=== PATIENT | female | born 1950 | race Caucasian/White ===

== ENCOUNTER 2019-10-23 08:05 | Observation (INO) ==
[2019-10-23 08:29] LABS: Basophils % 0.1 %; Eosinophils % 0.2 %; Hematocrit 40.1 % (35.3-44.9); Hemoglobin 13.3 g/dL (11.5-15.4); Immature Granulocytes % 0.3 % (0-4); Lymphocytes # 1.5 K/mcL (0.6-4.6); Lymphocytes % 15.9 %; Mean Corpuscular HGB Conc 33.2 g/dL (31.6-35.5); Mean Corpuscular Hemoglobin 28.6 pg (28.0-33.3); Mean Corpuscular Volume 86.2 fL (83.0-100.0); Mean Platelet Volume 10.4 fL (9.4-12.4); Monocytes # 1.1 K/mcL (0.0-1.3); Monocytes % 11.4 %; Platelet Count 172 K/mcL (140-400); Red Blood Count 4.65 M/mcL (3.82-4.97); Red Cell Distribution Width 13.1 % (11.5-14.5); Segmented Neutrophils % 72.1 %; White Blood Count 9.7 K/mcL (4.3-11.1)
[2019-10-23 08:33] LABS: Prothrombin Time 11.8 Seconds (9.4-12.1)
[2019-10-23 08:51] LABS: Alanine Aminotransferase 25 Units/L (7-52); Albumin 3.7 g/dL (3.5-5.7); Albumin/Globulin Ratio 1.4 (1.1-2.2); Alkaline Phosphatase 49 Units/L (34-104); Aspartate Amino Transferase 21 Units/L (13-39); BUN/Creatinine Ratio 13 (6-26); Bilirubin,Total 1.1 mg/dL (0.3-1.0); Blood Urea Nitrogen 14 mg/dL (8-23); Calcium 9.2 mg/dL (8.6-10.3); Carbon Dioxide 20 mEq/L (23-29); Chloride 101 mEq/L (98-107); Globulin 2.6 g/dL (2.4-3.5); Glucose 174 mg/dL (70-105); Osmolality,Calculated 283 (280-300); Potassium 3.8 mEq/L (3.5-5.1); Sodium 134 mEq/L (136-145); Total Protein 6.3 g/dL (6.4-8.9); Troponin I 0.06 ng/mL (< 0.04); eGFR For African Americans > 60 (> 60); eGFR For Non-African Americans 52 (> 60)
[2019-10-23] MEDS ORDERED: Isovue-370 500 ML BOTTLE IVP ONE (08:52)
[2019-10-23 09:07] LABS: Thyroid Stimulating Hormone 1.747 mcIU/mL (0.340-5.600)
[2019-10-23] MEDS ORDERED: *HR* Heparin 5,000 UNIT/ML VIAL IVP PRN ×2 (09:17)
[2019-10-23] MEDS ORDERED: *HR* Heparin 5,000 UNIT/ML VIAL IVP ONE (09:17)
[2019-10-23] MEDS ORDERED: Heparin 25,000 UNIT/250 ML D5W 25,000 UNIT/250 ML IV.SOLN IVC SCH (09:30)
[2019-10-23] MEDS ORDERED: MOM Conc 10 ML UD.LIQ PO PRN (10:37)
[2019-10-23] MEDS ORDERED: Ondansetron ODT 4 MG TAB.RAPDIS SL PRN (10:37)
[2019-10-23] MEDS ORDERED: *HR* HYDROcodone/Acet 5/325 mg TABLET PO PRN (10:37)
[2019-10-23] MEDS ORDERED: Acetaminophen 325 MG TABLET PO PRN (10:37)
[2019-10-23] MEDS ORDERED: Naloxone 0.4 MG/ML INJ IVP PRN (10:37)
[2019-10-23] MEDS ORDERED: Mag Hydrox/Al Hydrox/Simeth 30 ML UDC PO PRN (10:37)
[2019-10-23 11:44] VITALS: BP 136/85
[2019-10-24] MEDS ORDERED: Cholecalciferol (D-3) 1,000 UNIT (25MCG) TABLET PO SCH (09:00)
== END 2019-10-23 14:54 | disposition short-term general hospital (02) ==
LOC: 2ANU 08:05 → EMEROOARM 08:05 → 2ANU 10:43
PROVIDERS: ADMIT Internal Medicine; ATTEND Internal Medicine